=== PATIENT | female | born 1960 | race Caucasian/White ===

== ENCOUNTER → 2019-01-09 | Outpatient (CLI) | payer OTHER ==
[2019-01-09 07:56] LABS: BASOPHILS # (AUTO) 0.03 x10^3/uL (0-0.1); BASOPHILS % (AUTO) 1 % (0-1); EOSINOPHILS # (AUTO) 0.16 x10^3/uL (0-0.4); EOSINOPHILS % (AUTO) 3 % (1-7); LYMPHOCYTES # (AUTO) 2.22 x10^3/uL (1-3.4); LYMPHOCYTES % (AUTO) 37 % (22-44); MD NO; MEAN CORPUSCULAR HEMOGLOBIN 29.3 pg (27.0-34.8); MEAN CORPUSCULAR VOLUME 88.8 fL (80-100); MEAN PLATELET VOLUME 8.5 fL (7.4-10.4); MONOCYTES # (AUTO) 0.55 x10^3/uL (0.2-0.8); MONOCYTES % (AUTO) 9 % (2-9); NEUTROPHILS # (AUTO) 3.09 x10^3/uL (1.8-6.8); NEUTROPHILS % (AUTO) 51 % (42-75); PLATELET COUNT 299 x10^3/uL (130-400); RED BLOOD COUNT 4.94 x10^6/uL (3.82-5.3); RED CELL DISTRIBUTION WIDTH 13.1 % (9.6-15.2)
[2019-01-09 08:05] LABS: ALANINE AMINOTRANSFERASE 14 U/L (12-78); ALBUMIN 3.7 g/dL (3.4-5.0); ANION GAP 5 mmol/L (5-15); CALCIUM 8.8 mg/dL (8.5-10.1); CHLORIDE 106 mmol/L (98-107)
[2019-01-09 08:14] LABS: ALKALINE PHOSPHATASE 97 U/L (45-117); BILIRUBIN,TOTAL 0.5 mg/dL (0.2-1.0); CHOL/HDL RATIO 2.1; CHOLESTEROL, TOTAL 176 mg/dL (140-239); CREATININE 0.72 mg/dL (0.55-1.02); FREE T4 (FREE THYROXINE) 0.95 ng/dL (0.76-1.46); HDL CHOL % 47 % (28-40); HDL CHOLESTEROL (DIRECT) 83 mg/dL (40-60); LDL CHOLESTEROL,CALCULATED 81 mg/dL (54-169); TOTAL PROTEIN 7.7 g/dL (6.4-8.2); TRIGLYCERIDES 61 mg/dL (50-200); VLDL CHOLESTEROL 12 mg/dL (0-25)
== END | disposition home or self-care (01) ==
LOC: LAB 07:32
PROVIDERS: ATTEND Nurse Practitioner Family
DX: E78.00 Pure hypercholesterolemia, unspecified (principal); F41.9 Anxiety disorder, unspecified; R63.5 Abnormal weight gain; R73.01 Impaired fasting glucose
CPT/HCPCS: 36415; 80053; 80061; 82306; 83036; 84439; 84443; 85025

== ENCOUNTER 2019-03-20 07:16 | Outpatient (CLI) | payer OTHER | END 2019-03-20 23:59 | disposition home or self-care (01) | LOC: CFH 07:16 | PROVIDERS: ATTEND Obstetrics & Gynecology Female Pelvic Medicine and Reconstructive Surgery | DX: Z12.31 Encounter for screening mammogram for malignant neoplasm of breast (principal) | CPT/HCPCS: 77067 ==

== ENCOUNTER → 2019-09-09 | Outpatient (CLI) | payer OTHER | END | disposition home or self-care (01) | LOC: CFH 14:59 | PROVIDERS: ATTEND Otolaryngology | DX: J34.2 Deviated nasal septum (principal) | CPT/HCPCS: 70486 ==

== ENCOUNTER 2019-12-26 05:13 | Inpatient (IN) | payer OTHER ==
[~2019-12-26] VITALS: Ht 162.6 cm; Wt 90.7 kg
[~2019-12-26 05:13] MED LIST: ALPR0.25 PO; ASCO10004 PO; CHOL10003 PO; SIMV10TA PO; [UNRECOGNIZED DRUG - OTHER] PO
[2019-12-26] MEDS ORDERED: LACTATED RINGERS 1,000 ML IV SCH (05:57)
[2019-12-26] MEDS ORDERED: MUPIROCIN OINT 2%, 22GM ONE (06:11)
[2019-12-26] MEDS ORDERED: OXYMETAZOLINE NASAL SPRAY 0.05%, 15ML ONE (06:11)
[2019-12-26] MEDS ORDERED: THROMBIN 5,000 UNIT VIAL TP ONE (06:11)
[2019-12-26] MEDS ORDERED: LIDOCAINE 1%-EPI 1:100K, 20ML ONE (06:11)
[2019-12-26] MEDS ORDERED: DEXAMETHASONE 4 MG/ML, 1ML ONE (06:43)
[2019-12-26] MEDS ORDERED: SUCCINYLCHOLINE 20 MG/ML, 10ML ONE (06:43)
[2019-12-26] MEDS ORDERED: CEFAZOLIN 1,000 MG ONE (06:43)
[2019-12-26] MEDS ORDERED: ONDANSETRON 2MG/ML, 2ML ONE (06:43)
[2019-12-26] MEDS ORDERED: PROPOFOL 10 MG/ML, 20ML ONE (06:43)
[2019-12-26] MEDS ORDERED: SODIUM CHLORIDE 0.9% PF 10ML ONE (06:44)
[2019-12-26] MEDS ORDERED: FENTANYL PF 100 MCG/2ML ONE ×2 (06:47→07:55)
[2019-12-26] MEDS ORDERED: MIDAZOLAM 1 MG/ML, 2ML ONE (06:47)
[2019-12-26] MEDS ORDERED: PROMETHAZINE 25 MG/ML, 1ML IV PRN (07:00)
[2019-12-26] MEDS ORDERED: ONDANSETRON 2MG/ML, 2ML IV PRN (07:00)
[2019-12-26] MEDS ORDERED: LABETALOL 5MG/ML, 20ML IV PRN (07:00)
[2019-12-26] MEDS ORDERED: HYDROmorphone 2 MG/ML, 1ML IVPush PRN (07:00)
[2019-12-26] MEDS ORDERED: EPHEDRINE 50 MG/ML, 1ML IVPush PRN (07:00)
[2019-12-26] MEDS ORDERED: MEPERIDINE/PF 25MG/ML,1ML IVPush PRN (07:00)
[2019-12-26] MEDS ORDERED: FENTANYL PF 100 MCG/2ML IV PRN (07:00)
[2019-12-26] MEDS ORDERED: hydrALAzine 20 MG/ML, 1ML IV PRN (07:00)
[2019-12-26] MEDS ORDERED: ACETAMINOPHEN 500 MG TABLET PO ONE (07:00)
[2019-12-26] MEDS ORDERED: KETOROLAC 30 MG/1 ML ONE (07:14)
[2019-12-26] MEDS: OXYcodone 5 MG/5 ML ORAL.SOL UDC PO PRN ×2 (14:58→20:48)
[2019-12-26 17:44] VITALS: BP 151/82
[2019-12-26 20:35] VITALS: BP 151/73
[2019-12-26] MEDS: SIMVASTATIN 10 MG TABLET PO SCH (20:49)
[2019-12-26 20:50] LABS: BASOPHILS % (AUTO) 0 % (0-1); EOSINOPHILS % (AUTO) 0 % (1-7); LYMPHOCYTES # (AUTO) 0.98 x10^3/uL (1-3.4); LYMPHOCYTES % (AUTO) 9 % (22-44); MD NO; MEAN CORPUSCULAR HEMOGLOBIN 29.7 pg (27.0-34.8); MEAN CORPUSCULAR HGB CONC 32.4 g/dL (32.4-35.8); MEAN CORPUSCULAR VOLUME 91.7 fL (80-100); MEAN PLATELET VOLUME 8.4 fL (7.4-10.4); MONOCYTES % (AUTO) 3 % (2-9); NEUTROPHILS # (AUTO) 9.97 x10^3/uL (1.8-6.8); NEUTROPHILS % (AUTO) 89 % (42-75); PLATELET COUNT 344 x10^3/uL (130-400); RED BLOOD COUNT 4.75 x10^6/uL (3.82-5.3); RED CELL DISTRIBUTION WIDTH 13.4 % (9.6-15.2)
[2019-12-26 21:12] LABS: CHLORIDE 100 mmol/L (98-107)
[2019-12-26] MEDS: SODIUM CHLORIDE NASAL SPRAY 45ML BOTTLE NAS SCH (21:13)
[2019-12-26 21:17] LABS: ANION GAP 5 mmol/L (5-15); CALCIUM 8.8 mg/dL (8.5-10.1); CREATININE 0.74 mg/dL (0.55-1.02)
[2019-12-26 23:44] VITALS: BP 137/72
[2019-12-27] MEDS: OXYcodone IR 5MG TABLET PO PRN ×4 (01:48→14:04)
[2019-12-27 01:56] VITALS: BP 115/70
[2019-12-27 04:05] VITALS: BP 116/74
[2019-12-27 07:52] VITALS: BP 125/80
[2019-12-27] MEDS: CHOLECALCIFEROL 1,000 UNIT TABLET PO SCH (08:36)
[2019-12-27] MEDS: ASCORBIC ACID 500 MG TABLET PO SCH (08:36)
[2019-12-27] MEDS: SODIUM CHLORIDE NASAL SPRAY 45ML BOTTLE NAS SCH ×3 (08:36→20:22)
[2019-12-27] MEDS ORDERED: OMNIPAQUE 350 MG/ML, 100ML BOTTLE ONE (09:41)
[2019-12-27 10:29] LABS: TROPONIN I 0.015 ng/mL (0.000-0.045)
[2019-12-27] MEDS ORDERED: LEVOFLOXACIN/PMX 500MG/100ML 100 ML IV SCH (11:30)
[2019-12-27] MEDS: GUAIFENESIN 200 MG TABLET PO SCH ×3 (11:38→20:22)
[2019-12-27 13:26] LABS: TROPONIN I 0.019 ng/mL (0.000-0.045)
[2019-12-27 13:50] VITALS: BP 125/66
[2019-12-27 15:29] LABS: TROPONIN I 0.017 ng/mL (0.000-0.045)
[2019-12-27 18:12] VITALS: BP 117/67
[2019-12-27] MEDS: ACETAMINOPHEN 325 MG TABLET PO PRN (20:22)
[2019-12-27] MEDS: SIMVASTATIN 10 MG TABLET PO SCH (20:22)
[2019-12-27 21:45] LABS: TROPONIN I < 0.015 ng/mL (0.000-0.045)
[2019-12-28 00:56] VITALS: BP 117/68
[2019-12-28] MEDS: ACETAMINOPHEN 325 MG TABLET PO PRN ×4 (02:27→22:27)
[2019-12-28 05:05] LABS: BASOPHILS # (AUTO) 0.06 x10^3/uL (0-0.1); BASOPHILS % (AUTO) 1 % (0-1); EOSINOPHILS # (AUTO) 0.12 x10^3/uL (0-0.4); EOSINOPHILS % (AUTO) 1 % (1-7); LYMPHOCYTES # (AUTO) 2.37 x10^3/uL (1-3.4); LYMPHOCYTES % (AUTO) 25 % (22-44); MD NO; MEAN CORPUSCULAR HEMOGLOBIN 29.7 pg (27.0-34.8); MEAN CORPUSCULAR HGB CONC 32.2 g/dL (32.4-35.8); MEAN CORPUSCULAR VOLUME 92.3 fL (80-100); MEAN PLATELET VOLUME 9.2 fL (7.4-10.4); MONOCYTES # (AUTO) 0.85 x10^3/uL (0.2-0.8); MONOCYTES % (AUTO) 9 % (2-9); NEUTROPHILS # (AUTO) 6.19 x10^3/uL (1.8-6.8); NEUTROPHILS % (AUTO) 65 % (42-75); PLATELET COUNT 295 x10^3/uL (130-400); RED BLOOD COUNT 4.26 x10^6/uL (3.82-5.3); RED CELL DISTRIBUTION WIDTH 13.9 % (9.6-15.2)
[2019-12-28 05:11] LABS: ALANINE AMINOTRANSFERASE 13 U/L (12-78); ALBUMIN 3.3 g/dL (3.4-5.0); ANION GAP 3 mmol/L (5-15); CALCIUM 8.7 mg/dL (8.5-10.1); CHLORIDE 100 mmol/L (98-107); CREATININE 0.72 mg/dL (0.55-1.02)
[2019-12-28 05:14] LABS: ALKALINE PHOSPHATASE 97 U/L (45-117); BILIRUBIN,TOTAL 0.6 mg/dL (0.2-1.0); TOTAL PROTEIN 7.4 g/dL (6.4-8.2)
[2019-12-28] MEDS: GUAIFENESIN 200 MG TABLET PO SCH ×4 (05:37→20:59)
[2019-12-28 07:04] VITALS: BP 125/71
[2019-12-28] MEDS: ASCORBIC ACID 500 MG TABLET PO SCH (08:22)
[2019-12-28] MEDS: CHOLECALCIFEROL 1,000 UNIT TABLET PO SCH (08:22)
[2019-12-28] MEDS: SODIUM CHLORIDE NASAL SPRAY 45ML BOTTLE NAS SCH ×3 (08:23→20:58)
[2019-12-28] MEDS: LEVOFLOXACIN 500 MG TABLET PO SCH (11:40)
[2019-12-28 13:03] VITALS: BP 111/73
[2019-12-28] MEDS ORDERED: DOCUSATE 100 MG CAPSULE ONE (15:42)
[2019-12-28] MEDS: DOCUSATE 100 MG CAPSULE PO PRN (15:47)
[2019-12-28 18:37] VITALS: BP 125/60
[2019-12-28] MEDS: SIMVASTATIN 10 MG TABLET PO SCH (20:59)
[2019-12-28] MEDS ORDERED: BUSPIRONE 7.5 MG PO PRN (23:00)
[2019-12-29 01:12] VITALS: BP 117/80
[2019-12-29] MEDS: ACETAMINOPHEN 325 MG TABLET PO PRN ×2 (05:15→15:37)
[2019-12-29] MEDS: GUAIFENESIN 200 MG TABLET PO SCH ×2 (05:15→15:37)
[2019-12-29 05:35] LABS: ALBUMIN 3.4 g/dL (3.4-5.0); CALCIUM 8.7 mg/dL (8.5-10.1)
[2019-12-29 05:38] LABS: ALANINE AMINOTRANSFERASE 16 U/L (12-78); ALKALINE PHOSPHATASE 94 U/L (45-117); BILIRUBIN,TOTAL 0.8 mg/dL (0.2-1.0); CREATININE 0.73 mg/dL (0.55-1.02); TOTAL PROTEIN 7.4 g/dL (6.4-8.2)
[2019-12-29 05:53] LABS: CHLORIDE 101 mmol/L (98-107)
[2019-12-29 06:04] LABS: ANION GAP 2 mmol/L (5-15)
[2019-12-29 08:11] VITALS: BP 120/70
[2019-12-29] MEDS ORDERED: GUAI200T37 PO (09:34)
[2019-12-29] MEDS ORDERED: LEVO500T47 PO (09:34)
[2019-12-29] MEDS ORDERED: ACET325T26 PO (09:35)
[2019-12-29] MEDS: CHOLECALCIFEROL 1,000 UNIT TABLET PO SCH (09:46)
[2019-12-29] MEDS: DOCUSATE 100 MG CAPSULE PO PRN (09:46)
[2019-12-29] MEDS: LEVOFLOXACIN 500 MG TABLET PO SCH (09:46)
[2019-12-29] MEDS: ASCORBIC ACID 500 MG TABLET PO SCH (09:46)
[2019-12-29] MEDS: SODIUM CHLORIDE NASAL SPRAY 45ML BOTTLE NAS SCH (09:47)
[2019-12-29 13:41] VITALS: BP 128/82
== END 2019-12-29 16:40 | disposition home or self-care (01) | DRG 193 ==
LOC: OUT 05:13 → 4NE 17:31 → OUT 18:45 → OBSVTOIN 18:50 → 4NE 18:50 → 5SO 12-27 13:45 → DCLOUNGE 12-29 16:13
PROVIDERS: ADMIT Otolaryngology; ATTEND Otolaryngology
DX: J18.9 Pneumonia, unspecified organism (principal); J96.01 Acute respiratory failure with hypoxia; E87.1 Hypo-osmolality and hyponatremia; E66.9 Obesity, unspecified; E78.5 Hyperlipidemia, unspecified; F17.200 Nicotine dependence, unspecified, uncomplicated; F41.1 Generalized anxiety disorder; G47.30 Sleep apnea, unspecified; J34.2 Deviated nasal septum; J35.01 Chronic tonsillitis; J42 Unspecified chronic bronchitis; Z80.1 Family history of malignant neoplasm of trachea, bronchus and lung; Z82.5 Family history of asthma and other chronic lower respiratory diseases; Z88.0 Allergy status to penicillin; Z88.1 Allergy status to other antibiotic agents; Z88.8 Allergy status to other drugs, medicaments and biological substances; Z79.899 Other long term (current) drug therapy; Z68.34 Body mass index [BMI] 34.0-34.9, adult
CPT/HCPCS: 36415; 71045; 71275; 80048; 80053; 84484; 85025; 85379; 88305; 88341; 88342; 93005; 93306; G0378; J0690; J1100; J1885; J1956; J2250; J2405; J2704; J3010; J3490; Q9967; J0330; J7120

== ENCOUNTER → 2020-03-26 | Outpatient (CLI) | payer OTHER ==
[~2020-03-26] MED LIST changes: +ACET325T26 PO; +GUAI200T37 PO; +LEVO500T47 PO
== END | disposition home or self-care (01) ==
LOC: CFH 07:50
PROVIDERS: ATTEND Nurse Practitioner Family
DX: R05 Cough (principal); R06.00 Dyspnea, unspecified; R91.8 Other nonspecific abnormal finding of lung field
CPT/HCPCS: 71250

== ENCOUNTER → 2020-07-02 | Outpatient (CLI) | payer OTHER | END | disposition home or self-care (01) | LOC: CFH 06:53 | PROVIDERS: ATTEND Nurse Practitioner Obstetrics & Gynecology | DX: Z12.31 Encounter for screening mammogram for malignant neoplasm of breast (principal) | CPT/HCPCS: 77067 ==

== ENCOUNTER → 2020-11-17 | Outpatient (CLI) | payer OTHER ==
[~2020-11-17] MED LIST changes: +ASCO100018 PO; -ASCO10004 PO
[2020-11-17 07:32] LABS: BASOPHILS % (AUTO) 1 % (0-1); EOSINOPHILS % (AUTO) 3 % (1-7); LYMPHOCYTES % (AUTO) 35 % (22-44); MEAN CORPUSCULAR HEMOGLOBIN 29.8 pg (27.0-34.8); MEAN CORPUSCULAR HGB CONC 33.2 g/dL (32.4-35.8); MEAN PLATELET VOLUME 7.7 fL (7.4-10.4); MONOCYTES % (AUTO) 9 % (2-9); NEUTROPHILS % (AUTO) 52 % (42-75); PLATELET COUNT 318 x10^3/uL (130-400); RED BLOOD COUNT 4.44 x10^6/uL (3.82-5.3); RED CELL DISTRIBUTION WIDTH 13.3 % (9.6-15.2)
[2020-11-17 07:37] LABS: MD NO
[2020-11-17 08:04] LABS: CHLORIDE 105 mmol/L (98-107)
[2020-11-17 08:16] LABS: ALANINE AMINOTRANSFERASE 28 U/L (12-78); ALBUMIN 3.8 g/dL (3.4-5.0); ALKALINE PHOSPHATASE 132 U/L (45-117); ANION GAP 4 mmol/L (5-15); BILIRUBIN,TOTAL 0.5 mg/dL (0.2-1.0); CALCIUM 9.1 mg/dL (8.5-10.1); CHOL/HDL RATIO 2.3; CHOLESTEROL, TOTAL 196 mg/dL (140-239); CREATININE 0.76 mg/dL (0.55-1.02); FREE T4 (FREE THYROXINE) 0.86 ng/dL (0.76-1.46); HDL CHOL % 44 % (28-40); HDL CHOLESTEROL (DIRECT) 87 mg/dL (40-60); LDL CHOLESTEROL,CALCULATED 98 mg/dL (54-169); LDL/HDL RATIO 1.1 (0.5-3.0); TOTAL PROTEIN 7.9 g/dL (6.4-8.2); TRIGLYCERIDES 55 mg/dL (50-200); VLDL CHOLESTEROL 11 mg/dL (0-25)
== END | disposition home or self-care (01) ==
LOC: LAB 07:15
PROVIDERS: ATTEND Nurse Practitioner Family
DX: E78.00 Pure hypercholesterolemia, unspecified (principal); G47.30 Sleep apnea, unspecified; J45.909 Unspecified asthma, uncomplicated; E55.9 Vitamin D deficiency, unspecified; F41.1 Generalized anxiety disorder
CPT/HCPCS: 36415; 80053; 80061; 82306; 84439; 84443; 85025